=== PATIENT | female | born 1985 | race African-American/Black ===

== ENCOUNTER 2020-08-01 13:54 | Observation (INO) | payer OTHER ==
[~2020-08-01] VITALS: Ht 165.1 cm; Wt 84.5 kg
[2020-08-01 14:55] LABS: BASO # 0.1 10^3/uL (0.0-0.2); BASO % 0.9 % (0.0-1.0); EOS # 0.1 10^3/uL (0.0-0.5); EOS % 0.6 % (0.0-3.0); HEMATOCRIT 39.5 % (36.0-47.0); HEMOGLOBIN 13.1 g/dl (12.0-15.5); LYMPH % 27.4 % (24.0-44.0); MEAN CORPUSCULAR HGB CONC 33.2 g/dl (32.0-36.5); MEAN CORPUSCULAR VOLUME 90.4 fl (80.0-96.0); MONO # 0.7 10^3/uL (0.0-0.8); MONO % 6.3 % (2.0-8.0); NEUTROPHILS % 64.5 % (36.0-66.0); PLATELET COUNT, AUTOMATED 264 10^3/uL (150-450); RED BLOOD COUNT 4.37 10^6/uL (4.00-5.40); WHITE BLOOD COUNT 10.8 10^3/uL (4.0-10.0)
[2020-08-01 15:05] LABS: PROTHROMBIN TIME 13.4 SECONDS (12.5-14.3)
[2020-08-01 15:19] LABS: ALBUMIN 3.7 GM/DL (3.2-5.2); ALT/SGPT 19 U/L (12-78); BILIRUBIN,DIRECT < 0.1 MG/DL (0.0-0.2); BILIRUBIN,TOTAL 0.4 MG/DL (0.2-1.0); TOTAL PROTEIN 7.4 GM/DL (6.4-8.2)
--- NOTE | 2020-08-01 15:33 | REP ---
INDICATION: cp COMPARISON: None. TECHNIQUE: Portable AP view of the chest FINDINGS: The mediastinum and cardiac silhouette are within normal limits for portable technique. The lung duran are clear without acute consolidation, effusion, or pneumothorax. Skeletal structures are intact. IMPRESSION: No acute cardiopulmonary process appreciated. <Electronically signed by Bear Vazquez > 08/01/20 [id number]
[2020-08-01] MEDS ORDERED: ISOVUE-370 76% 100ML VIAL As Ordered ONE (15:34)
--- NOTE | 2020-08-01 16:01 | REP ---
INDICATION: hemoptysis CP COMPARISON: None. TECHNIQUE: Axial contrast enhanced images from the thoracic inlet to the upper abdomen using pulmonary embolus technique with multiplanar re-formations. 75 ml Isovue 370 intravenous contrast material administered without complication. This CT examination was performed using the following dose reduction techniques: Automated exposure control, adjustment of mA and/or kv according to the patient's size, and use of iterative reconstruction technique. FINDINGS: Satisfactory enhancement of the pulmonary vasculature is achieved. There is a moderate filling defect identified in the right 1st order lower lobe pulmonary artery extending into 2nd order branches (series 401; images 98). Remainder of the pulmonary arteries appear patent and normal. Thoracic aorta without aneurysm or dissection. Heart and pericardium are normal. The cardiac RV: LV ratio is normal. The bilateral lung duran are well aerated and clear. Very small focus of atelectasis at the left base noted. No effusion. No consolidation. No pneumothorax. Tracheobronchial tree is patent. No adenopathy. IMPRESSION: Pulmonary embolus in the 1st and 2nd order right lower lobe pulmonary arterial branches. No associated acute pleuroparenchymal process appreciated. <Electronically signed by Bear Vazquez > 08/01/20 [id number]
[2020-08-01] MEDS ORDERED: VITA100066 PO (16:18)
[2020-08-01] MEDS ORDERED: ACETAMINOPHEN TAB 650MG DOSE (2X325MG) PO PRN (16:35)
[2020-08-01] MEDS ORDERED: MOM 30ML SUSPENSION UDC PO PRN (16:35)
[2020-08-01] MEDS ORDERED: MAALOX 30 ML SUSP *UDC PO PRN (16:35)
--- NOTE | 2020-08-01 16:59 | HPEPDOC ---
[facility] Medical History & Physical Date of Admission Aug 01, 2020 Date of Service: Aug 01, 2020 History and Physical CHIEF COMPLAINT: Hemoptysis and chest pain HISTORY OF PRESENT ILLNESS: 34-year-old female with a past medical history of chronic low back pain, presented to [facility] after she developed hemoptysis as well as chest pain 5 days ago and has been progressively short of breath, particularly on exertion since then. Patient was advised to go to the hospital. She was advised to go to the emergency room from her physical therapist office. Patient denies any prior family history or personal history of blood clots. 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 On arrival to the ED, patient was saturating 100% on room air. Blood pressure 118/67. Respiratory rate 20. Pulse 81. Temperature 97.7. Lab work remarkable for WBC 10.8. Troponin 0.0. Point of care. Sodium 141, potassium 4.0, chloride 105. Creatinine 1.0, BUN 9. CT angiography of the chest revealed a pulmonary embolus in the first and second order right lower lobe pulmonary arterial branches. His x-ray revealed no acute cardiopulmonary process. Patient is currently pending. Bilateral lower extremity venous Dopplers. Patient will be admitted to start anticoagulation to hospitalist service for observation. PAST MEDICAL HISTORY: Chronic low back pain from overuse and sports PAST SURGICAL HISTORY: No prior surgical history SOCIAL HISTORY: Patient denies smoking Patient denies etoh use Patient denies illicit drug use Works for [employer] base in [place] This with her family at home. FAMILY HISTORY: Father from [place] at age 85 No history of DVT/PE ALLERGIES: Please see below. REVIEW OF SYSTEMS: 10 point review of systems was conducted. Relevant findings are noted in the HPI . HOME MEDICATIONS: Please see below. PHYSICAL EXAMINATION: VITAL SIGNS: please see below General: NAD, comfortable HEENT: PERRLA, EOMI, sclerae clear Neck: supple, normal ROM, no JVD Respiratory: lungs CTAB, no wheeze, no rales, no crackles CVS: RRR, normal S1, S2, no murmurs Abdo: soft, no masses, no hepatosplenomegaly, BS+, no rebound tenderness Extremities: no edema, pulses 2+ MSK: no joint deformities, normal ROM Neuro: no focal neuro deficits, moving all 4 extremities, CN2-12 intact. Strength 5/5 in all 4 extremities. No nystagmus. Psych: calm, cooperative, AAO x 3 LABORATORY DATA: See below. IMAGING: CT angiography (08/01/20): CT angiography of the chest revealed a pulmonary embolus in the first and second order right lower lobe pulmonary arterial branches. CXR (08/01/20): His x-ray revealed no acute cardiopulmonary process. MICROBIOLOGY: Please see below. ASSESSMENT: 34-year-old female with chronic back problems. Otherwise, healthy, presented to the ED with hemoptysis proximally 5 days ago with progressively worsening shortness of breath and exertion as well as left-sided, nonradiating, pleuritic chest pain. Patient was diagnosed with a right pulmonary embolism, started on liquids. Admitted to hospitalist service for observation. Bilateral lower extremity duplexes. Hypercoagulable workup was ordered from the ED . PLAN: Acute pulmonary embolism: -Seen on CT described as above. -Suspected provoked, as patient sits in her car for 9 hours per day -hypercoagulable workup sent from ED -bilateral venous duplex pending -Start AC with eliquis 10 mg BID x 7 days, followed by 5 mg BID Chest pain - pleuritic, likely 2/2 PE - EKG NSR - Trop neg - will repeat trop hx of Back pain - chronic - in PT as outpatient Dispo: expect DC home after 24 hours obs. Vital Signs Vital Signs Date Time Temp Pulse Resp B/P (MAP) Pulse Ox O2 Delivery O2 Flow Rate FiO2 08/01/20 16:35 65 18 100 Room Air 08/01/20 14:22 97.7 118/67 (84) Laboratory Data Labs 24H Laboratory Tests 2 08/01/20 14:17: Immature Granulocyte % (Auto) 0.3, Neutrophils (%) (Auto) 64.5, Lymphocytes (%) (Auto) 27.4, Monocytes (%) (Auto) 6.3, Eosinophils (%) (Auto) 0.6, Basophils (%) (Auto) 0.9, Neutrophils # (Auto) 7.0, Lymphocytes # (Auto) 3.0, Monocytes # (Auto) 0.7, Eosinophils # (Auto) 0.1, Basophils # (Auto) 0.1, Nucleated Red Blood Cells % (auto) 0.0, Prothrombin Time 13.4, Prothromb Time International Ratio 1.00, Total Bilirubin 0.4, Direct Bilirubin < 0.1, Aspartate Amino Transf (AST/SGOT) 10, Alanine Aminotransferase (ALT/SGPT) 19, Alkaline Phosphatase 95, Total Protein 7.4, Albumin 3.7, Albumin/Globulin Ratio 1.0L 08/01/20 14:32: POC Glucose (Misc Panel) 88, POC Sodium (Misc Panel) 141, POC Potassium (Misc Panel) 4.0, POC Chloride (Misc Panel) 105, POC Total CO2 (Misc Panel) 26.0, POC Blood Urea Nitrogen (Misc Panel 9, POC Ionized Calcium (Misc Panel) 5.1, POC Creatinine (Misc Panel) 1.0, POC Hematocrit (Misc Panel) 39.0 08/01/20 14:34: POC Troponin I (Misc) 0.00 08/01/20 14:49: POC Beta HCG, Quantitative < 5.0 08/01/20 16:27: CBC/BMP Laboratory Tests 08/01/20 14:17 Home Medications Scheduled Cholecalciferol (Vitamin D3) (Vitamin D3) 25 Mcg Tablet, 25 MCG PO DAILY Allergies Coded Allergies: No Known Allergies (Unverified , 08/01/20) SHMUEL STYLES MD Aug 01, 2020 16:59
[2020-08-01 17:23] LABS: RSV AMPLIFICATION NEGATIVE (NEGATIVE)
[2020-08-01] MEDS ORDERED: APIXABAN 5 MG TAB (ELIQUIS) PO ONE (17:30)
--- NOTE | 2020-08-01 17:36 | REPVR ---
PROCEDURE INFORMATION: Exam: US Duplex Lower Extremity Veins, Bilateral Exam date and time: 08/01/2020 5:19 PM Age: 34 years old Clinical indication: Other: Chest pain; Additional info: Pe ? dvt TECHNIQUE: Imaging protocol: Real-time duplex ultrasound of the extremities with 2-D dietrich scale, color Doppler flow and spectral waveform analysis with image documentation. Complete exam focused on the bilateral lower extremity veins. COMPARISON: No relevant prior studies available. FINDINGS: Right deep veins: Unremarkable. The common femoral, femoral, popliteal and posterior tibial veins are patent without thrombus. Normal Doppler waveforms. Normal compressibility and/or augmentation response. Right superficial veins: Saphenofemoral junction is patent without thrombus. Left deep veins: Unremarkable. The common femoral, femoral, popliteal and posterior tibial veins are patent without thrombus. Normal Doppler waveforms. Normal compressibility and/or augmentation response. Left superficial veins: Saphenofemoral junction is patent without thrombus. Soft tissues: Unremarkable. IMPRESSION: No sonographic evidence of deep vein thrombosis. Electronically signed by: Carlos Mandel On 08/01/2020 17:37:18 PM
[2020-08-01 18:24] LABS: INR 1.01; PARTIAL THROMBOPLASTIN TIME 26.7 SECONDS (24.2-38.5); PROTHROMBIN TIME 13.5 SECONDS (12.5-14.3)
--- NOTE | 2020-08-01 20:13 | ECGEPIP ---
[facility] - ED Test Date: 2020-08-01 Pat Name: DONELL GOTTI Department: Room: - Gender: Female [employer] Operator: : 1985 Requested By: Ada Bergman Order Number: [id number] Reading MD: Ada Bergman Measurements Intervals [place] Rate: 78 P: 54 DE: 174 QRS: 19 QRSD: 80 T: 28 QT: 344 QTc: 392 Interpretive Statements Normal sinus rhythm No prior Electronically Signed on 08-01-2020 20:13:54 EST by Ada Bergman
[2020-08-01 20:37] VITALS: BP 138/80
[2020-08-01] MEDS: DOCUSATE SODIUM 100MG CAPSULE PO SCH (21:18)
[2020-08-02 05:54] LABS: BASO # 0.1 10^3/uL (0.0-0.2); EOS # 0.1 10^3/uL (0.0-0.5); EOS % 1.2 % (0.0-3.0); HEMATOCRIT 39.6 % (36.0-47.0); HEMOGLOBIN 12.6 g/dl (12.0-15.5); LYMPH # 3.1 10^3/uL (1.5-5.0); LYMPH % 37.7 % (24.0-44.0); MEAN CORPUSCULAR HEMOGLOBIN 28.8 pg (27.0-33.0); MEAN CORPUSCULAR HGB CONC 31.8 g/dl (32.0-36.5); MEAN CORPUSCULAR VOLUME 90.6 fl (80.0-96.0); MONO # 0.6 10^3/uL (0.0-0.8); MONO % 7.1 % (2.0-8.0); NEUTROPHILS # 4.3 10^3/uL (1.5-8.5); NEUTROPHILS % 52.8 % (36.0-66.0); PLATELET COUNT, AUTOMATED 259 10^3/uL (150-450); RED BLOOD COUNT 4.37 10^6/uL (4.00-5.40); WHITE BLOOD COUNT 8.2 10^3/uL (4.0-10.0)
[2020-08-02 06:00] VITALS: BP 128/77
[2020-08-02 06:14] LABS: ALBUMIN 3.5 GM/DL (3.2-5.2); ALT/SGPT 15 U/L (12-78); BILIRUBIN,TOTAL 0.5 MG/DL (0.2-1.0); BLOOD UREA NITROGEN 10 MG/DL (7-18); CARBON DIOXIDE LEVEL 28 MEQ/L (21-32); CHLORIDE LEVEL 108 MEQ/L (98-107); CREATININE FOR GFR 0.93 MG/DL (0.55-1.30); GLOMERULAR FILTRATION RATE > 60.0 (>60); GLUCOSE, FASTING 89 MG/DL (70-100); MAGNESIUM LEVEL 1.8 MG/DL (1.8-2.4); POTASSIUM SERUM 4.2 MEQ/L (3.5-5.1); SODIUM LEVEL 141 MEQ/L (136-145); TOTAL PROTEIN 7.1 GM/DL (6.4-8.2)
--- NOTE | 2020-08-02 07:50 | DS.PDOC ---
Discharge Summary General Date of Admission Aug 01, 2020 at 13:55 Date of Discharge 08/02/20 Discharge Summary PROCEDURES PERFORMED DURING STAY: None ADMITTING DIAGNOSES: acute pulmonary embolism chest pain hx of back pain DISCHARGE DIAGNOSES: acute pulmonary embolism chest pain hx of back pain COMPLICATIONS/CHIEF COMPLAINT: Pulmonary Embolism. HISTORY OF PRESENT ILLNESS: 34-year-old female with a past medical history of chronic low back pain, presented to [facility] after she developed hemoptysis as well a s chest pain 5 days ago and has been progressively short of breath, particularly on exertion since then. Patient was advised to go to the hospital. She was advised to go to the emergency room from her physical therapist office. Patient denies any prior family history or personal history of blood clots. 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 On arrival to the ED, patient was saturating 100% on room air. Blood pressure 118/67. Respiratory rate 20. Pulse 81. Temperature 97.7. Lab work remarkable for WBC 10.8. Troponin 0.0. Point of care. Sodium 141, potassium 4.0, chloride 105. Creatinine 1.0, BUN 9. CT angiography of the chest revealed a pulmonary embolus in the first and second order right lower lobe pulmonary arterial branches. His x-ray revealed no acute cardiopulmonary process. Patient is currently pending. Bilateral lower extremity venous Dopplers. Patient will be admitted to start anticoagulation to hospitalist service for observation. HOSPITAL COURSE: Acute pulmonary embolism: -Seen on CT described as above. -Suspected provoked, as patient sits in her car for 9 hours per day due to work -hypercoagulable workup sent from ED -bilateral venous duplex negative for DVT -Start AC with eliquis 10 mg BID x 7 days, followed by 5 mg BID -referral to hematology provided -f/u with PCP 3-5 days. -VSS. Satuaring on RA at 100% on DC. Chest pain - pleuritic, likely 2/2 PE - EKG NSR - Trop neg x 2 hx of Back pain - chronic - in PT as outpatient DISCHARGE MEDICATIONS: Please see below. ALLERGIES: Please see below. PHYSICAL EXAMINATION ON DISCHARGE: VITAL SIGNS: please see below General: NAD, comfortable HEENT: PERRLA, EOMI, sclerae clear Neck: supple, normal ROM, no JVD Respiratory: lungs CTAB, no wheeze, no rales, no crackles CVS: RRR, normal S1, S2, no murmurs Abdo: soft, no masses, no hepatosplenomegaly, BS+, no rebound tenderness Extremities: no edema, pulses 2+ MSK: no joint deformities, normal ROM Neuro: no focal neuro deficits, moving all 4 extremities, CN2-12 intact. Strength 5/5 in all 4 extremities. No nystagmus. Psych: calm, cooperative, AAO x 3 LABORATORY DATA: Please see below. IMAGING: Lower Extremity Venous Duplex Bilateral (08/01/20): No sonographic evidence of deep vein thrombosis. CT angiography (08/01/20): CT angiography of the chest revealed a pulmonary embolus in the first and second order right lower lobe pulmonary arterial branches. CXR (08/01/20): His x-ray revealed no acute cardiopulmonary process. PROGNOSIS: good ACTIVITY: As tolerated DIET: as tolerated DISCHARGE PLAN: DC home with eliquis (10 mg BID x 7 days total), PCP follow up. Referral to hematology given. Hypercoagulable labs are pending. DISPOSITION: DC home DISCHARGE INSTRUCTIONS: . Please follow-up with your primary care doctor within 3-5 days . Please follow-up with hematology in 1-2 weeks . Please taking medications as prescribed. . If you develop bleeding, chest pain, shortness of breath, seizures, nausea, fevers, or otherwise worsening of your symptoms, please call 911 or return to the nearest emergency room ITEMS TO FOLLOWUP ON ON OUTPATIENT: 1. Hypercoagulable workup DISCHARGE CONDITION: Stable TIME SPENT ON DISCHARGE: 35 minutes Vital Signs/I&Os Vital Signs Date Time Temp Pulse Resp B/P (MAP) Pulse Ox O2 Delivery O2 Flow Rate FiO2 08/02/20 06:00 97.3 83 16 128/77 (94) 100 Room Air I&O- Last 24 Hours up to 6 AM 08/02/20 06:00 Intake Total 0 ml Output Total 400 ml Balance -400 ml Laboratory Data Labs 24H Laboratory Tests 2 08/01/20 14:17: Immature Granulocyte % (Auto) 0.3, Neutrophils (%) (Auto) 64.5, Lymphocytes (%) (Auto) 27.4, Monocytes (%) (Auto) 6.3, Eosinophils (%) (Auto) 0.6, Basophils (%) (Auto) 0.9, Neutrophils # (Auto) 7.0, Lymphocytes # (Auto) 3.0, Monocytes # (Auto) 0.7, Eosinophils # (Auto) 0.1, Basophils # (Auto) 0.1, Nucleated Red Blood Cells % (auto) 0.0, Prothrombin Time 13.4, Prothromb Time International Ratio 1.00, Total Bilirubin 0.4, Direct Bilirubin < 0.1, Aspartate Amino Transf (AST/SGOT) 10, Alanine Aminotransferase (ALT/SGPT) 19, Alkaline Phosphatase 95, Total Protein 7.4, Albumin 3.7, Albumin/Globulin Ratio 1.0L 08/01/20 14:32: POC Glucose (Misc Panel) 88, POC Sodium (Misc Panel) 141, POC Potassium (Misc Panel) 4.0, POC Chloride (Misc Panel) 105, POC Total CO2 (Misc Panel) 26.0, POC Blood Urea Nitrogen (Misc Panel 9, POC Ionized Calcium (Misc Panel) 5.1, POC Creatinine (Misc Panel) 1.0, POC Hematocrit (Misc Panel) 39.0 08/01/20 14:34: POC Troponin I (Misc) 0.00 08/01/20 14:49: POC Beta HCG, Quantitative < 5.0 08/01/20 15:58: Prothrombin Time 13.5, Prothromb Time International Ratio 1.01, Activated Partial Thromboplast Time 26.7, KZ-Ost-C-Type Natriuretic Peptide 92 08/01/20 16:27: Coronavirus (COVID-19)(PCR) NEGATIVE, Influenza Type A (RT-PCR) NEGATIVE, Influe nza Type B (RT-PCR) NEGATIVE, Respiratory Syncytial Virus (PCR) NEGATIVE 08/01/20 17:31: 08/01/20 23:36: Troponin I < 0.02 08/02/20 05:25: Immature Granulocyte % (Auto) 0.2, Neutrophils (%) (Auto) 52.8, Lymphocytes (%) (Auto) 37.7, Monocytes (%) (Auto) 7.1, Eosinophils (%) (Auto) 1.2, Basophils (%) (Auto) 1.0, Neutrophils # (Auto) 4.3, Lymphocytes # (Auto) 3.1, Monocytes # (Auto) 0.6, Eosinophils # (Auto) 0.1, Basophils # (Auto) 0.1, Nucleated Red Blood Cells % (auto) 0.0, Anion Gap 5L, Glomerular Filtration Rate > 60.0, Calcium Level 9.0, Magnesium Level 1.8, Total Bilirubin 0.5, Aspartate Amino Transf (AST/SGOT) 8, Alanine Aminotransferase (ALT/SGPT) 15, Alkaline Phosphatase 93, Total Protein 7.1, Albumin 3.5, Albumin/Globulin Ratio 1.0L CBC/BMP Laboratory Tests 08/01/20 14:17 08/02/20 05:25 Discharge Medications Scheduled Cholecalciferol (Vitamin D3) (Vitamin D3) 25 Mcg Tablet, 25 MCG PO DAILY, (Reported) Allergies Coded Allergies: No Known Allergies (Unverified , 08/01/20) SHMUEL STYLES MD Aug 02, 2020 07:50
[2020-08-02] MEDS ORDERED: ELIQ5TAB PO ×3 (07:55→09:55)
[2020-08-02] MEDS ORDERED: ACET1TAB55 PO ×3 (07:55→09:55)
[2020-08-02] MEDS: DOCUSATE SODIUM 100MG CAPSULE PO SCH (08:15)
[2020-08-02] MEDS ORDERED: APIXABAN 5 MG TAB (ELIQUIS) PO SCH (09:00)
== END 2020-08-02 10:36 | disposition home or self-care (01) ==
LOC: M ED 13:54 → M ED INP 13:55 → ENRESERV 18:49 → M MSPAV 20:37
PROVIDERS: ADMIT Family Medicine; ATTEND Family Medicine
DX: I26.99 Other pulmonary embolism without acute cor pulmonale (principal); R07.89 Other chest pain; M54.5 Low back pain
CPT/HCPCS: 36415; 71045; 71275; 80047; 80053; 80076; 81240; 83735; 83880; 84311; 84484; 84702; 85025; 85300; 85301; 85303; 85305; 85610; 85730; 86147; 87631; 93005; 93041; 93970; 99285; Q9967

== ENCOUNTER 2020-08-07 10:49 | Emergency (ER) | payer OTHER ==
[~2020-08-07] VITALS: Ht 165.1 cm; Wt 83.0 kg
[~2020-08-07 10:49] MED LIST: ACET1TAB55 PO; ELIQ5TAB PO; VITA100066 PO
[2020-08-07 12:13] LABS: BASO # 0.1 10^3/uL (0.0-0.2); BASO % 0.8 % (0.0-1.0); EOS # 0.1 10^3/uL (0.0-0.5); EOS % 0.6 % (0.0-3.0); HEMATOCRIT 37.5 % (36.0-47.0); HEMOGLOBIN 12.5 g/dl (12.0-15.5); LYMPH # 2.6 10^3/uL (1.5-5.0); LYMPH % 32.3 % (24.0-44.0); MEAN CORPUSCULAR HEMOGLOBIN 29.4 pg (27.0-33.0); MEAN CORPUSCULAR HGB CONC 33.3 g/dl (32.0-36.5); MEAN CORPUSCULAR VOLUME 88.2 fl (80.0-96.0); MONO # 0.4 10^3/uL (0.0-0.8); MONO % 5.5 % (2.0-8.0); NEUTROPHILS # 4.8 10^3/uL (1.5-8.5); NEUTROPHILS % 60.7 % (36.0-66.0); PLATELET COUNT, AUTOMATED 289 10^3/uL (150-450); RED BLOOD COUNT 4.25 10^6/uL (4.00-5.40)
--- NOTE | 2020-08-07 12:40 | REP ---
INDICATION: leg cramping, pr concern clot, -US on , on eliquis for PE COMPARISON: 08/01/2020. TECHNIQUE: Real time compression and duplex Doppler interrogation of the right lower extremity deep venous system is performed. FINDINGS: The right common femoral, superficial femoral and popliteal veins are fully compressible with transducer pressure and demonstrate normal spontaneous and phasic flow, without evidence of deep venous thrombosis. IMPRESSION: No evidence of deep venous thrombosis of the right lower extremity femoral popliteal venous system. <Electronically signed by Damir Underwood > 08/07/20 [id number]
[2020-08-07 12:42] LABS: CK-MB VALUE MASS < 1.0 NG/ML (<3.6); CPK CREATINE PHOSPHOKINASE 98 U/L (26-192); MB/CK RELATIVE INDEX 1.02 (< OR =4); NT-PRO BNP 42 PG/ML (<125); TROPONIN I < 0.02 NG/ML (< 0.10)
[2020-08-07 13:17] VITALS: BP 121/71
--- NOTE | 2020-08-07 17:31 | ECGEPIP ---
[facility] - ED Test Date: 2020-08-07 Pat Name: DONELL GOTTI Department: Room: - Gender: Female Cutter Machine: DUANE : 1985 Requested By: JOSE M Khoury PA-C Order Number: [id number] Reading MD: Ada Bergman Measurements Intervals [place] Rate: 88 P: 73 [place]: 190 QRS: 21 QRSD: 80 T: 41 QT: 332 QTc: 401 Interpretive Statements Normal sinus rhythm increased rate 08/01/20 Electronically Signed on 08-07-2020 17:31:08 EST by Ada Bergman
== END 2020-08-07 13:18 | disposition home or self-care (01) ==
LOC: M ED 10:49
DX: I26.99 Other pulmonary embolism without acute cor pulmonale (principal); G44.209 Tension-type headache, unspecified, not intractable; R06.02 Shortness of breath; Z79.01 Long term (current) use of anticoagulants